=== PATIENT | male | born 1980 | race Two or more races ===

== ENCOUNTER 2020-03-28 11:46 | Emergency (ER) | payer OTHER ==
[~2020-03-28] VITALS: Ht 180.3 cm; Wt 87.1 kg
[2020-03-28 12:48] VITALS: BP 149/100
[2020-03-28] MEDS ORDERED: KETOROLAC TROMETH 60MG/2ML VIAL IM ONE (13:00)
== END 2020-03-28 13:46 | disposition home or self-care (01) ==
LOC: ER 11:46
DX: S63.501A Unspecified sprain of right wrist, initial encounter (principal); F17.210 Nicotine dependence, cigarettes, uncomplicated; W01.0XXA Fall on same level from slipping, tripping and stumbling without subsequent striking against object, initial encounter; Y93.89 Activity, other specified; Y92.89 Other specified places as the place of occurrence of the external cause; Y99.8 Other external cause status
CPT/HCPCS: 29125; 73130; 96372; 99283; J1885